=== PATIENT | female | born 1950 | race Caucasian/White ===

== ENCOUNTER → 2017-06-16 | Outpatient (CLI) | payer MEDICARE ==
[~2017-06-16] MED LIST: ECOTRIN325 MG PO; NORCO 10/3251 TAB PO
--- NOTE | ~2017-06-16 | CR72 ---
[facility] A Service of [facility] RADIOLOGY TEXT RESULTS PATIENT: ALISA SORIANO LOCATION: [facility] : 52 UNIT #: [id number] AGE: [address]: JAYY SANDY APRN SEX: F ORDER DR: [id number] [facility] [address] [place], [place] [address] [id number] O MR#: [id number] Acc #: [id number] NAME: ALISA SORIANO : 1950 SEX: F STUDY DATE/TIME: 06/16/2017 13:33 UNIT: [facility] ROOM: STUDY DESCRIPTION: CR Chest Single View Portable Attending Physician: Jayy Sandy M.D. Referring Physician: Jayy Sandy M.D. Primary Care Physician: Jayy Sandy M.D. MEDICAL IMAGING REPORT This report is preliminary unless electronic signature is present EXAM Portable chest INDICATION Left pleural effusion status post left thoracentesis today. COMPARISON 11/06/2016 FINDINGS No evidence for pneumothorax following thoracentesis. There is atelectasis within the left lung base. Right lung is clear and the heart size is normal. There are axillary surgical clips on the right. IMPRESSION No pneumothorax following left thoracentesis. Dictated by... Sundar Lopez M.D. THIS IS AN ELECTRONICALLY VERIFIED REPORT Sundar Lopez M.D. at 06/16/2017 5:29 PM Nicole TD: 06/16/2017 15:10 JOB #: [id number] MEDICAL IMAGING REPORT Page 1 of 1 COPY
--- NOTE | ~2017-06-16 | XA203 ---
[facility] A Service of [facility] RADIOLOGY TEXT RESULTS PATIENT: ALISA SORIANO [facility] : 52 UNIT #: [id number] AGE: [address]: JAYY SANDY APRN SEX: F ORDER DR: [id number] [place] [id number] [facility] [place], [place] [address] [id number] O MR#: [id number] Acc #: [id number] NAME: ALISA SORIANO : 1950 SEX: F STUDY DATE/TIME: 06/16/2017 13:25 UNIT: [facility] ROOM: STUDY DESCRIPTION: XA Thoracentesis Attending Physician: Jayy Sandy M.D. Referring Physician: Jayy Sandy M.D. Ordering Physician: Jayy Sandy M.D. Primary Care Physician: Jayy Sandy M.D. MEDICAL IMAGING REPORT This report is preliminary unless electronic signature is present EXAM Thoracentesis. INDICATIONS Left pleural effusion. The risks, benefits, and alternatives of the procedure were discussed with the patient and informed consent was obtained. In the procedure room, a time out was performed confirming correct patient and procedure. All elements of maximum sterile-barrier technique utilized according to guidelines appropriate for the procedure. TECHNIQUE/FINDINGS Ultrasound of the left posterior hemithorax was performed demonstrating a large left pleural effusion. The overlying skin was prepped and draped in usual sterile fashion. 1% lidocaine utilized to anesthetize the skin and underlying subcutaneous tissues. Next under ultrasound guidance, a 5-Aust[place] Yueh catheter inserted into the pleural space on the left and 950 mL of fluid was removed. Sample was saved and sent to the lab. Needle was removed and a sterile dressing was applied. No immediate complications. IMPRESSION Technically successful ultrasound-guided left thoracentesis. Dictated by... Sundar Lopez M.D. THIS IS AN ELECTRONICALLY VERIFIED REPORT Sundar Lopez M.D. at 06/18/2017 7:59 AM ARS/pcl [facility] A Service of [facility] RADIOLOGY TEXT RESULTS PATIENT: ALISA SORIANO LOCATION: [facility] #: [id number] : 52 UNIT #: [id number] AGE: [address]: JAYY SANDY APRN SEX: F ORDER DR: TD: 06/16/2017 22:04 JOB #: [id number] MEDICAL IMAGING REPORT Page 1 of 1 COPY
[2017-06-16 12:45] LABS: HEMATOCRIT 38.7 % (35.0-45.0); MEAN CELL VOLUME 89.4 FL (83-96); MEAN CORPUSCULAR HEMOGLOBIN 29.9 PG (28-34); MEAN CORPUSCULAR HGB CONC 33.5 g/dL (30-36); MEAN PLATELET VOLUME 8.6 FL (6.5-11.5); RED BLOOD COUNT 4.33 X10e (3.90-5.30); RED CELL DISTRIBUTION WIDTH 13.7 % (11.0-15.5); WHITE BLOOD COUNT 7.1 X10e3 (4.0-10.5)
[2017-06-16 12:59] LABS: PARTIAL THROMBOPLASTIN TIME 25.3 SECONDS (23.5-31.3); PROTHROMBIN TIME (PATIENT) 10.5 SECONDS (10.0-11.7)
[2017-06-16 15:35] LABS: PROTEIN, BODY FLUID 4.5 gm/dL
[2017-06-16 15:54] LABS: BF TOTAL NUCLEATED CELL COUNT 1693 CMM (0-100); BODY FLUID APPEARANCE HAZY; BODY FLUID RBC <10000 CMM; BODY FLUID SOURCE THORACENTESIS
== END | disposition home or self-care (01) ==
LOC: CIVR 12:01
DX: J90 Pleural effusion, not elsewhere classified (principal)
CPT/HCPCS: 36415; 71010; 82945; 83986; 84157; 85027; 85610; 85730; 87070; 87205; 88108; 88305; 89051